=== PATIENT | female | born 1990 | race Caucasian/White ===

== ENCOUNTER → 2017-12-09 19:04 | Outpatient (CLI) | payer MEDICAID, SELFPAY ==
[2017-05-02 09:04] VITALS: BP 118/79
[2017-12-09 09:26] VITALS: BP 126/82; BMI 29.5
== END ==
PROVIDERS: Family Provider Family Medicine; PCP Family Medicine; Visit Provider Physician Assistant Surgical
DX: J02.9 Acute pharyngitis, unspecified (principal)
CPT/HCPCS: 87081